=== PATIENT | female | born 1965 | race Caucasian/White ===

== ENCOUNTER 2020-11-24 21:51 | Inpatient (IN) | payer BC ==
[~2020-11-24] VITALS: Ht 157.5 cm; Wt 76.0 kg
[2020-11-24 22:04] VITALS: BP 142/90
--- NOTE | 2020-11-24 22:07 | NUR ---
TO LOBBY A/W BED AMBULATORY
--- NOTE | 2020-11-25 01:01 | NUR ---
TO BED AMBULATORY
--- NOTE | 2020-11-25 01:10 | NUR ---
PT. IS A 55 Y/O FEMALE THAT CAME INTO ED WITH C/O OF EPIGASTRIC PAIN. PT. STATES THAT THE PAIN STARTED 2 DAYS AGO AND RATES PAIN AT 8/10 ON THE PAIN SCALE AT THIS TIME. DENIES DIARRHEA, ADMITS TO N/V. PT. ALSO STATES THAT SHE HAS BURNING SENSATINON UPON URINATION. SKIN IS PINK/WARM/DRY; AAOX4 WITH EVEN AND STEADY GAIT; HR EVEN AND REGULAR; PT DENIES ANY FEVER, CP, SOB, OR COUGH AT THIS TIME; VSS; PATIENT POSITIONED FOR COMFORT; HOB ELEVATED; BEDRAILS UP X2; BED DOWN. ER MD MADE AWARE OF PT STATUS. PMH: HTN, DM, HYPOTHYROID ALLERGIES: NKA
--- NOTE | 2020-11-25 01:14 | NUR ---
LAB AT BEDSIDE
--- NOTE | 2020-11-25 01:22 | NUR ---
XRAY AT BEDSIDE
[2020-11-25 01:23] LABS: BASOPHILS % (AUTO) 0.5 % (0.0-2.0); EOSINOPHILS % (AUTO) 0.4 % (0.0-4.0); HEMATOCRIT 41.1 % (36-48); HEMOGLOBIN 13.5 g/dL (12.0-16.0); LYMPHOCYTES # (AUTO) 1.2 K/uL (2.5-16.5); LYMPHOCYTES % (AUTO) 14.4 % (20.5-51.1); MEAN CORPUSCULAR HEMOGLOBIN 31 pg (27-31); MEAN CORPUSCULAR HGB CONC 33 g/dL (33-37); MONOCYTES # (AUTO) 0.7 K/uL (0.8-1.0); MONOCYTES % (AUTO) 8.6 % (1.7-9.3); NEUTROPHILS # (AUTO) 6.2 K/uL (1.8-7.7); NEUTROPHILS % (AUTO) 76.1 % (42.2-75.2); PLATELET COUNT (AUTO) 215 K/uL (140-450); RED BLOOD CELL COUNT(AUTO) 4.42 MIL/uL (4.20-5.40); RED CELL DISTRIBUTION WIDTH 18.3 % (11.6-13.7); WHITE BLOOD COUNT (AUTO) 8.1 K/uL (4.8-10.8)
[2020-11-25 01:24] LABS: APPEARANCE,URINE CLOUDY (CLEAR); BILIRUBIN,URINE NEGATIVE (NEGATIVE); BLOOD, URINE TRACE-I (NEGATIVE); COLOR,URINE YELLOW (YELLOW); LEUKOCYTE ESTERASE ,URINE 2+ (NEGATIVE); NITRITE, URINE NEGATIVE (NEGATIVE); UGLUCOSE 3+ (NEGATIVE)
--- NOTE | 2020-11-25 01:24 | NUR ---
EKG AT BEDSIDE
[2020-11-25 01:36] LABS: RBC,URINE 0-5 /HPF (0-5); WBC,URINE TOO MANY TO COUNT /HPF (0-5)
[2020-11-25 01:38] LABS: ALBUMIN 3.7 g/dL (3.4-5.0); ANION GAP 12.2 (8-16); CARBON DIOXIDE 30.2 mmol/L (21-32); CREATININE 1.1 mg/dL (0.6-1.3); TOTAL BILIRUBIN 0.6 mg/dL (0.0-1.0)
[2020-11-25 01:41] LABS: POTASSIUM 2.4 mmol/L (3.5-5.1)
[2020-11-25] MEDS ORDERED: KCL 20 MEQ/WATER INJ PREMIX 100 ML IV ONE (02:05)
[2020-11-25] MEDS ORDERED: NACL 0.9% 1,000 ML IV ONE (02:05)
[2020-11-25] MEDS ORDERED: MORPHINE SULFATE 4 MG/ML SYR IVP ONE (02:05)
[2020-11-25] MEDS ORDERED: MORPHINE SULFATE 4 MG/ML SYR ONE (03:24)
[2020-11-25] MEDS ORDERED: cefTRIAXone 1,000 MG VIAL ONE (03:25)
[2020-11-25] MEDS ORDERED: ACETAMINOPHEN 325 MG TAB PO PRN (05:30)
[2020-11-25] MEDS ORDERED: ONDANSETRON 4 MG/2 ML VIAL IVP PRN (05:30)
--- NOTE | 2020-11-25 06:00 | NUR ---
PT. LAYING IN SUPINE POSITION, AWAKE AND ALERT. HR EVEN AND REGULAR. BREATHING UNLABORED. WILL CONT. TO MONITOR
[2020-11-25] MEDS: NACL 0.9% 1,000 ML IV SCH ×3 (06:27→22:21)
[2020-11-25] MEDS ORDERED: DOPPLER MC ONE (07:23)
--- NOTE | 2020-11-25 07:32 | NUR ---
PATIENT REQUESTING MEDICATION FOR PAIN; ADVISED MORPHINE PRN ORDER Q4HR NEXT DOSE IN 1 HOUR. PATIENT ACKNOWLEDGED/UNDERSTANDS.
--- NOTE | 2020-11-25 07:33 | NUR ---
REPORT GIVEN TO MARIELOS HAQUE. TRANSFER OF CARE AT THIS TIME.
--- NOTE | 2020-11-25 07:33 | NUR ---
Report and continuation of care received from MARIELOS Macias.
[2020-11-25] MEDS: MORPHINE SULFATE 2 MG/ML SYR IVP PRN ×4 (08:20→23:45)
[2020-11-25] MEDS ORDERED: METF-1022 PO (08:21)
[2020-11-25] MEDS ORDERED: SITA25TA3 PO (08:25)
--- NOTE | 2020-11-25 08:25 | NUR ---
PT REPORTS POSITIVE RELIEF; RATES PAIN 6/10. NO NAUSEA. ALL NEEDS MET.
[2020-11-25] MEDS ORDERED: LEVO0.173 PO (08:31)
[2020-11-25] MEDS ORDERED: OMEP40EC24 PO (08:32)
[2020-11-25] MEDS ORDERED: PIOG15TA84 PO (08:33)
--- NOTE | 2020-11-25 09:12 | NUR ---
PATIENT AMBULATED TO RESTROOM WITH STEADY/EVEN GAIT.
--- NOTE | 2020-11-25 10:32 | NUR ---
Patient presents with both eyes closed in semi-fowlers position. panel monitor in place. Pain 08/18. Bed locked in lowest position, side rails x 1, call light in reach.
--- NOTE | 2020-11-25 11:18 | NUR ---
Patient states concern for NPO status. Patient states "I think I might go into alcohol detox." Pt reports she has been drinking 8 whiskey shots + 2 glasses of [employer] per day. Reports last alcohol intake yestrday 11/24 @ 1800. Advised to utilize call light if she begins experiencing any symptoms.
--- NOTE | 2020-11-25 12:06 | NUR ---
Pt ambulated to restroom to void. Placed back onto monitoring manager. VSS; RR even/unlabored. IVF continued. Bed locked in lowest position, side rails x 1, call light in reach.
--- NOTE | 2020-11-25 13:01 | NUR ---
Patient resting in position of comfort with both eyes open on phone. monitoring engineer and IVF continued. + relief "The pain feels better." 08/18 pain at this time. Bed locked in lowest position, side rails x 1, call light in reach.
--- NOTE | 2020-11-25 13:41 | NUR ---
Dr. Jimenez is evaluating pt at bedside
--- NOTE | 2020-11-25 13:48 | NUR ---
Patient states positive relief after Morphine 2mg IVP PRN. 08/18. Denies nausea. All pt needs met.
--- NOTE | 2020-11-25 14:18 | NUR ---
Patient ambulated to restroom
--- NOTE | 2020-11-25 14:41 | NUR ---
Patient back onto bed in semi-fowlers position. monitoring engineer and IVF continued. Bed locked in lowest position, side rails x 1, call light in reach.
--- NOTE | 2020-11-25 15:26 | NUR ---
1330 NS 0.9% fluids delayed due to previous IVF infusing at this time.
--- NOTE | 2020-11-25 16:36 | NUR ---
Patient presents with both eyes closed in semi-fowlers position. equipment monitor phototypesetting in place. Pain 08/18. Bed locked in lowest position, side rails x 1, call light in reach.
--- NOTE | 2020-11-25 17:30 | NUR ---
Patient ambulated to restroom with steady/even gait.
--- NOTE | 2020-11-25 18:32 | NUR ---
Patient resting in position of comfort. Reports pain 8/10, PRN pain meds to be given.
--- NOTE | 2020-11-25 19:24 | NUR ---
Report and transfer of care endorsed to MARIELOS Flanagan.
--- NOTE | 2020-11-25 20:07 | NUR ---
ambulated to br with steady gait
--- NOTE | 2020-11-25 21:30 | NUR ---
REPORT CALLED TO MARIELOS OLIVEIRA
--- NOTE | 2020-11-25 21:50 | NUR ---
TO 104B VIA GURNEY ATTACHED TO CM, ACCOMPANIED BY RN & ERT.
[2020-11-25 21:54] VITALS: BP 150/83
[2020-11-25 23:50] VITALS: BP 142/75
--- NOTE | 2020-11-25 23:53 | NUR ---
ADMISSION OF A 55 YEAR OLD FEMALE PATIENT UNDER DOCTOR MICHELLE FOR ACUTE ON CHRONIC PANCREATITIS. PATIENT REQUESTS TO HAVE ICE uTrail me EDUCATION ABOUT NPO. REQUESTS TO CALL MD. RITA PARR RN
[2020-11-26] MEDS: MORPHINE SULFATE 2 MG/ML SYR IVP PRN ×5 (03:43→23:01)
[2020-11-26 04:00] VITALS: BP 139/91
[2020-11-26] MEDS: NACL 0.9% 1,000 ML IV SCH ×3 (05:27→20:40)
--- NOTE | 2020-11-26 05:50 | NUR ---
PROVIDED ORAL CARE ITEMS PER PATIENT REQUEST. LABORATORY PRESENT FOR MORNING BLOOD DRAW. RITA PARR RN
--- NOTE | 2020-11-26 07:00 | NUR ---
RECIEVE REPORT FROM INFANTRY SENIOR SERGEANT NURSE .PT LAYING ON BED, NO COMPLAINS. BREATHING EVEN UNLABORED. PT N ROOM AIR, NO SIGNS OF DISTRESS NOTED. IV FLUIDS INFUSING THROUGH LEFT AC IV. ALL SAFETY MEASRES OM PLACE CALLS LIGHT WITHIN REACH.
--- NOTE | 2020-11-26 07:10 | NUR ---
PATIENT HAS BEEN SCREENED AND CATEGORIZED MODERATE NUTRITION RISK. PATIENT WILL BE SEEN WITHIN 3-5 DAYS OF ADMISSION. 11/29/20-12/01/20 MEE AUGUSTE MS, RDN
[2020-11-26 07:19] LABS: CARBON DIOXIDE 30.9 mmol/L (21-32)
[2020-11-26 07:20] LABS: CREATININE 0.7 mg/dL (0.6-1.3)
--- NOTE | 2020-11-26 07:23 | NUR ---
HANDOFF WITH MARIELOS MAXWELL. RITA PARR RN
[2020-11-26 07:40] LABS: ANION GAP 8.5 (8-16); POTASSIUM 2.4 mmol/L (3.5-5.1)
--- NOTE | 2020-11-26 07:40 | NUR ---
PT ASKING FOR ICE CHIP, INFORM DR MARTINEZ, HE ASKED TO GIVE HER ICE CHIP. PT ALSO WANT TO TALK TO THE DE, DR MARTINEZ, INFORMED AND RESPOND THAT HE WILL SEE HER AT NOON TIME. PT POTASSIUM AND MG LOW, INFORMED DR MARTINEZ. AND RECIVED AN ORDER FOR REPLACEMENT.
[2020-11-26 08:00] VITALS: BP 126/86
--- NOTE | 2020-11-26 08:55 | NUR ---
PT COMPLAINS ABOUT PAIN, PT RECEIVE MEDICATION PRN ORDER. ALL SAFETY MEASURES ON PLACE, CALLS LIGHT WITHIN REACH.
[2020-11-26] MEDS: KCL 20 MEQ/WATER INJ PREMIX 100 ML IV SCH ×3 (09:56→13:30)
--- NOTE | 2020-11-26 10:19 | NUR ---
PT SETTING IN BED, NO COMPLAINS, ALL SAFETY MEASURES ON PLACE, CALLS LIGHT WITHIN REACH.
[2020-11-26 12:00] VITALS: BP 132/89
--- NOTE | 2020-11-26 12:43 | NUR ---
PT COMPLAINS ABOUT PAIN, GOT MEDICATED PRN ORDER. PT SAYS THAT SHE IS HUNGRY AND WANT TO EAT, EFUCATED THAT SHE IS NPO, PT ASKED TO TALKED TO THE DR DR MARTINEZ INFORMED. ALL SAFETY MEASURES IN PLACE, CALLS LIGHT WITHIN REACH
[2020-11-26 13:59] LABS: BASOPHILS # (AUTO) 0.1 K/uL (0.00-0.22); BASOPHILS % (AUTO) 1.5 % (0.0-2.0); EOSINOPHILS # (AUTO) 0.2 K/uL (0-0.4); EOSINOPHILS % (AUTO) 2.9 % (0.0-4.0); HEMATOCRIT 35.5 % (36-48); HEMOGLOBIN 11.6 g/dL (12.0-16.0); LYMPHOCYTES # (AUTO) 1.1 K/uL (2.5-16.5); LYMPHOCYTES % (AUTO) 18.7 % (20.5-51.1); MEAN CORPUSCULAR HEMOGLOBIN 31 pg (27-31); MEAN CORPUSCULAR HGB CONC 33 g/dL (33-37); MEAN CORPUSCULAR VOLUME 93.7 fL (80-94); MONOCYTES # (AUTO) 0.6 K/uL (0.8-1.0); NEUTROPHILS # (AUTO) 3.8 K/uL (1.8-7.7); NEUTROPHILS % (AUTO) 66.9 % (42.2-75.2); PLATELET COUNT (AUTO) 121 K/uL (140-450); RED BLOOD CELL COUNT(AUTO) 3.79 MIL/uL (4.20-5.40); RED CELL DISTRIBUTION WIDTH 17.8 % (11.6-13.7); WHITE BLOOD COUNT (AUTO) 5.7 K/uL (4.8-10.8)
--- NOTE | 2020-11-26 14:40 | NUR ---
PT LAYING ON BED, NO COMPLAINS SAFETY MEASURES ON PLACE, CALLS LIGHT WITHIN REACH
[2020-11-26 16:00] VITALS: BP 138/85
[2020-11-26] MEDS ORDERED: MAG SULF 2000 MG/WATER PREMIX 50 ML IV SCH (16:00)
--- NOTE | 2020-11-26 16:40 | NUR ---
PT SITTING ON BED, DR MARTINEZ ASK TO GIVE HER LIQUID DIET AND ADVANCE TOLERATED. GOT LIQUIS DIET TLERATED WELL. ALL SAFETY MEASURES ON PLACE CALLS LIGHT WITHIN REACH
--- NOTE | 2020-11-26 18:22 | NUR ---
PT LAYING ON BED, COMPLAIN ABOUT PAIN GOT MEDICATED PRN ORDER, ALL SAFETY MEASURES ON PLCE CALLS LIGHT WITHIN REACH
--- NOTE | 2020-11-26 19:00 | NUR ---
PATIENT AAOX4, VERBALIZING NEEDS TO STAFF. PATIENT DIAGNOSIS ACUTE PANCREATITIS. PATIENT CONSUMING WATER AND JUICE AT BEDSIDE. TOLERATED WELL. COMPLAINT OF GENERALIZED PAIN. REQUEST FOR MEDICATION MORPHINE. RN DISCUSSED WITH PATIENT MEDICATION REGIMEN. IV LINE ON THE LAC INTACT AND IN PLACE. RESPIRATION REGULAR NON LABORED. PATIENT VERBALIZING NEEDS TO STAFF. TUNNELED RIJ HEMODIALYSIS CATHETER WITH DRESSING DRY AND INTACT. RIGHT FOOT 3RD, 4TH, 5TH TOE AMPUTATION NOTED. MRSA SCREENING DONE. ORIENTED TO ROOM, CALL LIGHT , STAFF. PLACED IN BED COMFORTABLY. PATIENT EDUCATED TO MEDICATION REGIMEN, FALL AND SAFETY INTERVENTIONARY MEASURES AND RN PLAN OF CARE. PATIENT COMPLIANT WITH CARE. MEDICATION REGIMEN REINFORCED TO PATIENT NEEDED. NO DISTRESS NOTED.
--- NOTE | 2020-11-26 19:05 | NUR ---
FULL REPORT GIVEN TO CARE SPECIALIST NURSE
[2020-11-26 20:00] VITALS: BP 142/86
[2020-11-27] VITALS: BP 128/78
[2020-11-27 04:03] VITALS: BP 134/82
[2020-11-27] MEDS: NACL 0.9% 1,000 ML IV SCH ×3 (05:44→22:21)
[2020-11-27] MEDS: MORPHINE SULFATE 2 MG/ML SYR IVP PRN ×4 (05:44→19:48)
--- NOTE | 2020-11-27 07:05 | NUR ---
RECEIVED BEDSIDE REPORT FROM MATERIALS HANDLER NURSE FOR CONTINUITY OF CARE. PT IS AWAKE AND ALERT. A&OX4. ON RA WITH BREATHING UNLABORED. PT DENIES PAIN AT THIS TIME. AMBULATORY INDEPENDENTLY. SKIN IS WARM, DRY, AND INTACT. IV IS IN THE LEFT AC 20 GAUGE RUNNING NS AT 125 ML/HR. PT IS STABLE AT THIS TIME. PLAN OF CARE DISCUSSED.
[2020-11-27 07:10] LABS: ALBUMIN 2.6 g/dL (3.4-5.0); ANION GAP 9.7 (8-16); CARBON DIOXIDE 27.7 mmol/L (21-32); CREATININE 0.6 mg/dL (0.6-1.3); TOTAL BILIRUBIN 0.9 mg/dL (0.0-1.0)
[2020-11-27 07:17] LABS: BASOPHILS # (AUTO) 0.1 K/uL (0.00-0.22); BASOPHILS % (AUTO) 1.1 % (0.0-2.0); EOSINOPHILS # (AUTO) 0.2 K/uL (0-0.4); EOSINOPHILS % (AUTO) 3.6 % (0.0-4.0); HEMATOCRIT 32.3 % (36-48); HEMOGLOBIN 10.7 g/dL (12.0-16.0); LYMPHOCYTES # (AUTO) 1.1 K/uL (2.5-16.5); LYMPHOCYTES % (AUTO) 20.8 % (20.5-51.1); MEAN CORPUSCULAR HEMOGLOBIN 31 pg (27-31); MEAN CORPUSCULAR HGB CONC 33 g/dL (33-37); MEAN CORPUSCULAR VOLUME 93.5 fL (80-94); MONOCYTES # (AUTO) 0.6 K/uL (0.8-1.0); MONOCYTES % (AUTO) 11.1 % (1.7-9.3); NEUTROPHILS # (AUTO) 3.2 K/uL (1.8-7.7); NEUTROPHILS % (AUTO) 63.4 % (42.2-75.2); PLATELET COUNT (AUTO) 111 K/uL (140-450); RED BLOOD CELL COUNT(AUTO) 3.46 MIL/uL (4.20-5.40); RED CELL DISTRIBUTION WIDTH 17.7 % (11.6-13.7); WHITE BLOOD COUNT (AUTO) 5.1 K/uL (4.8-10.8)
[2020-11-27 07:35] LABS: POTASSIUM 2.4 mmol/L (3.5-5.1)
[2020-11-27 08:00] VITALS: BP 150/93
--- NOTE | 2020-11-27 09:58 | NUR ---
PT IS STATING SHE HAS PAIN AT A SCALE OF 10/10 IN THE ABDOMEN. PT WAS GIVEN MORPHINE ORDERED IVP. BP WAS 150/93 PRIOR TO ADMINISTRATION OF MEDICATION.
--- NOTE | 2020-11-27 11:02 | NUR ---
POTASSIUM LEVEL 2.4, CRITICAL LAB. REPORTED TO DR. MARTINEZ VIA TELEPHONE CALL. DR. MARTINEZ ORDERED 60 MEQ IVPB OVER 6 HOURS AND 40 MEQ KDUR PO. WILL ADMINISTER ONCE VERIFIED.
[2020-11-27] MEDS ORDERED: POTASSIUM CHLORIDE 10 MEQ TABER PO SCH (11:30)
[2020-11-27] MEDS: KCL 20 MEQ/WATER INJ PREMIX 100 ML IV SCH ×3 (12:15→16:46)
--- NOTE | 2020-11-27 12:15 | NUR ---
KRIDER 20 MEQ STARTED ORDERED IVPB. MEDICATION EDUCATION WAS PROVIDED AND PT VERBALIZED UNDERSTANDING. WILL CONTINUE TO MONITOR.
--- NOTE | 2020-11-27 14:25 | NUR ---
PT STATES SHE HAS PAIN IN THE ABDOMEN AT A SCALE OF 10/10. PT WAS GIVEN MORPHINE FOR PAIN IVP. BP WAS 131/80 PRIOR TO ADMINISTRATION OF MEDICATION. WILL MONITOR PAIN.
--- NOTE | 2020-11-27 14:31 | NUR ---
ANOTHER 20 MEQ KRIDER WAS GIVEN ORDERED. WILL CONTINUE TO MONITOR PT.
[2020-11-27 16:00] VITALS: BP 136/87
--- NOTE | 2020-11-27 16:46 | NUR ---
KRIDER 20 MEQ IVPB WAS STARTED ORDERED FOR POTASSIUM LEVEL 2.4. PT IS STABLE AT THIS TIME. WILL CONTINUE TO MONITOR.
--- NOTE | 2020-11-27 17:00 | NUR ---
PAGED DR. MARTINEZ THROUGH EXCHANGE TO INFORM HIM ABOUT RESULTS OF URINE CULTURE; POSITIVE FOR BACTERIA. PHARMACIST, BERTRAM, RECOMMENDED ROCEPHIN SHE ALREADY RECEIVED IN THE ER. WILL WAIT FOR CALL BACK.
--- NOTE | 2020-11-27 18:41 | NUR ---
PT REQUESTED REGULAR DIET. STATES THAT ABD PAIN HAS IMPROVED. PER DR. MARTINEZ DIET CAN BE ADVANCED TOLERATED. DIET CHANGED FROM CLEAR LIQUID TO REGULAR DIET.
--- NOTE | 2020-11-27 19:05 | NUR ---
ENDORSED PT TO CONSULTING SERVICES MANAGER NURSE FOR CONTINUITY OF CARE. PT IS STABLE AT THIS TIME. PLAN OF CARE DISCUSSED.
--- NOTE | 2020-11-27 20:00 | NUR ---
1999 PATIENT RECEIVED IN BED ALERT AND COHERENT, C/O PAIN IN THE BACK 10/18
--- NOTE | 2020-11-27 20:21 | NUR ---
PATIENT WAS GIVEN MORPHINE 2 MG VIA IVP OVER 5-6 MINUTES, FLUSHED WITH 5 ML NSS, TOLERATED WELL BY THE PATIENT.
--- NOTE | 2020-11-27 21:00 | NUR ---
IV HYDRATION BAG WAS REPLACED
--- NOTE | 2020-11-27 22:00 | NUR ---
KLEBSIELLA IN URINE: RN CALLED DR. MARTINEZ, DR. MELGOZA WAS ECONOMICS INSTRUCTOR, ORDERED ROCEPHINE 1 GRAM Q 24 HOURS, CALLED IN TO [facility] TO VERIFY.
--- NOTE | 2020-11-27 22:41 | NUR ---
PATIENT REQUESTED FOR SANDWICH, RN SERVED SANDWICH AND FILL IN THE PITCHER WITH ICED WATER.
[2020-11-27] MEDS ORDERED: cefTRIAXone 1,000 MG VIAL ONE (22:48)
[2020-11-28] VITALS: BP 141/96
--- NOTE | 2020-11-28 | NUR ---
PATIENT C/O PAIN, MEDICATED WITH MORPHINE 2 MG IVP
[2020-11-28] MEDS: MORPHINE SULFATE 2 MG/ML SYR IVP PRN ×3 (00:17→09:49)
--- NOTE | 2020-11-28 01:53 | NUR ---
PATIENT WAS ASLEEP AT THIS TIME
[2020-11-28] MEDS: NACL 0.9% 1,000 ML IV SCH ×2 (05:30→07:00)
--- NOTE | 2020-11-28 07:15 | NUR ---
ALL REPORTS WERE GIVEN TO INCOMING RN, TRANSFER OF CARE ENDORSED.
--- NOTE | 2020-11-28 07:30 | NUR ---
RECEIVED BEDSIDE REPORT FROM FOUNDRY EQUIPMENT MECHANIC NURSE FOR CONTINUITY OF CARE. PT IS AWAKE AND ALERT. A&OX4. ON RA WITH BREATHING UNLABORED. PT DENIES PAIN AT THIS TIME. AMBULATORY INDEPENDENTLY. SKIN IS WARM, DRY, AND INTACT. IV IS IN THE LEFT AC 20 GAUGE RUNNING NS AT 125 ML/HR. PT IS STABLE AT THIS TIME. PLAN OF CARE DISCUSSED. ALLSAFETY MEASURES ON PLACE. CALLS LIGHT WITHIN REACH
[2020-11-28 08:00] VITALS: BP 139/87
--- NOTE | 2020-11-28 09:06 | NUR ---
DC PLANNING: VERITO SPOKE WITH VERITO MONTOYA FOR PRIMECARE, VERBAL REVIEW GIVEN. CM WILL FOLLOW FOR NEEDS.
--- NOTE | 2020-11-28 09:30 | NUR ---
PT IS AWAKE AND ALERT. A&OX4. ON RA WITH BREATHING UNLABORED. IV LEAKING, NO BLOOD RETUREN, IV REMOVED SKIN INTACT BLEEDING CONTROLLED. NEW IV INSERTED , FLUIDS INFUSING
--- NOTE | 2020-11-28 09:55 | NUR ---
PT COMPLAINS ABOUT PAIN GOT MEDICATED PRN ORDER
--- NOTE | 2020-11-28 11:14 | NUR ---
PT SITTING ON BED, NO COMPLAIN AT THIS TIME, ALL SAFETY MEASURES ON PLACE, CALLS LIGHT WITHIN REACH, DR JERRY TALKED TO THE PT FOR POSSIBLE DISCHARGE. PT CONCERN ABOUT PAIN ,MANAGMENT AND ASK FOR PAIN MEDS FOR DISCHARGE, INFORM DR VALDEZ.
[2020-11-28] MEDS ORDERED: TRAM50TA1 PO (11:43)
[2020-11-28] MEDS ORDERED: POTASSIUM CHLORIDE 10 MEQ TABER PO SCH (12:00)
[2020-11-28 13:04] VITALS: BP 139/87
--- NOTE | 2020-11-28 13:45 | NUR ---
PT SITTING ON BED, NO COMPLAINS, NO SIGNS OF DISTRESS NOTED, IV REMOVED, BLEEDING CONTROM SKIN INTACT. DISCHARGE EDUCATION AND INSTRUCTION GIVEN. ID BAND REMOVED, PT GOT ALL BELONGINGS, WALKED TO [facility], SON PICKING HER UP.
== END 2020-11-28 19:11 | disposition home or self-care (01) | DRG 440 ==
LOC: MED 21:51 → MTU 11-25 06:04 → INTOOBSV 11-25 16:51 → OBSVTOIN 11-25 16:51 → MTU 11-25 21:06 → OBSVTOIN 11-26 09:59
PROVIDERS: ADMIT Hospitalist; ATTEND Hospitalist
DX: K85.20 Alcohol induced acute pancreatitis without necrosis or infection (principal); E11.9 Type 2 diabetes mellitus without complications; K21.9 Gastro-esophageal reflux disease without esophagitis; E78.5 Hyperlipidemia, unspecified; I10 Essential (primary) hypertension; F10.10 Alcohol abuse, uncomplicated; Y90.9 Presence of alcohol in blood, level not specified
CPT/HCPCS: 36415; 71045; 80048; 80053; 81001; 83690; 83735; 84132; 84484; 85025; 87086; 93005; 96361; 96365; 96366; 96367; 96375; 99285; G0378; J0696; J2270; J2405; J3475; J3480; J7060; Q0092

== ENCOUNTER 2021-12-11 18:44 | Emergency (ER) | payer BC ==
[~2021-12-11] VITALS: Ht 154.9 cm; Wt 68.0 kg
[~2021-12-11 18:44] MED LIST: LEVO0.173 PO; METF-1253 PO; OMEP40EC24 PO; PIOG15TA84 PO; SITA25TA3 PO; TRAM50TA1 PO
[2021-12-11 19:03] VITALS: BP 196/110
--- NOTE | 2021-12-11 19:10 | NUR ---
PT AMB TO BED 1.
[2021-12-11] MEDS ORDERED: NACL 0.9% 1,000 ML IV SCH (20:15)
[2021-12-11 20:34] LABS: EOSINOPHILS # (AUTO) 0.1 K/uL (0-0.4); EOSINOPHILS % (AUTO) 1.8 % (0.0-4.0); HEMOGLOBIN 10.6 g/dL (12.0-16.0); LYMPHOCYTES # (AUTO) 1.9 K/uL (2.5-16.5); LYMPHOCYTES % (AUTO) 41.9 % (20.5-51.1); MEAN CORPUSCULAR HEMOGLOBIN 27 pg (27-31); MEAN CORPUSCULAR HGB CONC 32 g/dL (33-37); MEAN CORPUSCULAR VOLUME 84.6 fL (80-94); MONOCYTES # (AUTO) 0.3 K/uL (0.8-1.0); MONOCYTES % (AUTO) 5.8 % (1.7-9.3); NEUTROPHILS # (AUTO) 2.2 K/uL (1.8-7.7); NEUTROPHILS % (AUTO) 49.5 % (42.2-75.2); PLATELET COUNT (AUTO) 175 K/uL (140-450); RED CELL DISTRIBUTION WIDTH 19.5 % (11.6-13.7); WHITE BLOOD COUNT (AUTO) 4.5 K/uL (4.8-10.8)
[2021-12-11 20:52] LABS: ALBUMIN 3.3 g/dL (3.4-5.0); ANION GAP 15.8 (8-16); CARBON DIOXIDE 26.9 mmol/L (21-32); CREATININE 0.7 mg/dL (0.6-1.3); POTASSIUM 3.7 mmol/L (3.5-5.1); TOTAL BILIRUBIN 0.4 mg/dL (0.0-1.0)
[2021-12-11 20:56] LABS: SALICYLATE < 2.8 mg/dL (2.8-20.0)
[2021-12-11 20:59] LABS: ACETAMINOPHEN < 0.5 ug/ml (10-30)
[2021-12-11 21:50] LABS: APPEARANCE,URINE CLEAR (CLEAR); BILIRUBIN,URINE NEGATIVE (NEGATIVE); BLOOD, URINE NEGATIVE (NEGATIVE); COLOR,URINE YELLOW (YELLOW); LEUKOCYTE ESTERASE ,URINE NEGATIVE (NEGATIVE); NITRITE, URINE NEGATIVE (NEGATIVE); PH,URINE 6.5 (5.0-9.0); UGLUCOSE NEGATIVE (NEGATIVE)
[2021-12-12 00:10] VITALS: BP 156/98
== END 2021-12-12 00:04 | disposition home or self-care (01) ==
LOC: MED 18:44
DX: F10.129 Alcohol abuse with intoxication, unspecified (principal); R10.9 Unspecified abdominal pain; I10 Essential (primary) hypertension; E11.9 Type 2 diabetes mellitus without complications; K21.9 Gastro-esophageal reflux disease without esophagitis; N18.9 Chronic kidney disease, unspecified; E03.9 Hypothyroidism, unspecified; Z79.4 Long term (current) use of insulin; Z79.899 Other long term (current) drug therapy; Y90.9 Presence of alcohol in blood, level not specified
CPT/HCPCS: 36415; 80053; 81003; 83690; 85025; 96360; 96361; 99283; G0480; G0482; J7030